=== PATIENT | female | born 1960 | race Caucasian/White ===

== ENCOUNTER 2018-10-03 05:27 | Day surgery (SDC) | payer OTHER ==
[2018-10-02 11:14] VITALS: Ht 160 cm; Wt 63.6 kg
--- NOTE | 2018-10-02 16:15 | RADRPT ---
Vent Rate: 75 bpm RR Interval: 800 msec MN Interval: 134 msec QRS Duration: 84 msec QT Interval: 350 msec QTC Interval: 391 msec P-R-T [place]: 69 - 53 - 44 degrees Sinus rhythm...normal P axis, V-rate 50- 99 Electronically Signed By: Shukri Cobb
--- NOTE | 2018-10-02 21:23 | PREAC ---
Date/Time of Note Date/Time of Note DATE: 10/02/18 TIME: : Anesthesia Eval and Record Evaluation Time Pre-Procedure Interview DATE: 10/02/18 TIME: 21:22 Age 58 Sex female NPO: 8 hrs Preoperative diagnosis LEFT distal radius fracture Planned procedure ORIF left distal radius Past Medical History Past Medical History: None Surgery & Anesthesia Issues No known issue Meds Anticoagulation: No Beta Jasson within 24 hr: No Reason Beta Jasson not given: Pt. not on B-Jasson Current Medications Cefazolin Sodium/ Dextrose 50 ml @ 100 mls/hr PRE-OP ONCE IVPB ; Start 10/03/18 at 07:00; Stop 10/03/18 at 07:29 Meds reviewed: Yes Allergies Coded Allergies: No Known Allergy (Unverified , 10/02/18) Allergies Reviewed: Yes Labs/Studies Labs Reviewed: Reviewed by anesthesiologist Result Diagram: 10/02/18 1318 10/02/18 1318 Laboratory Tests 10/02/18 13:18 test: N/A Studies: ECG, CXR Pre-procedure Exam Airway: Adequate mouth opening, Adequate thyromental dist Mallampati: Mallampati II Teeth: Normal Lung: Normal Heart: Normal ASA Physical Status ASA physical status: 1 Emergency: None Planned Anesthetic General/MAC: LMA Nerve block: Brachial plexus (left) Planned Pain Management Parenteral pain med, Local by surgeon Pre-operative Attestations Prior to commencing anesthesia and surgery, the patient was re-evaluated, there was verification of: *The patient's identity *The results of appropriate recent lab work and preoperative vital signs *The above evaluation not changing prior to induction *Anesthetic plan, risk benefits, alternative and complications discussed with patient/family; questions answered; patient/family understands, accepts and wishes to proceed. CRALY CARRION October 02, 2018 21:23
[2018-10-03] VITALS (19 sets, daily range): BP systolic 124–153; BP diastolic 64–82; PULSE 82–112; RESP 14–31
[~2018-10-03] VITALS: Ht 160 cm; Wt 63.6 kg
[2018-10-03] MEDS ORDERED: LIDOCAINE 2% (SDV) 5 ML INJ ONE (06:41)
[2018-10-03] MEDS ORDERED: MIDAZOLAM 1 MG/ML 2 ML INJ ONE (06:41)
[2018-10-03] MEDS ORDERED: CEFAZOLIN 1 GM INJ ONE (06:41)
[2018-10-03] MEDS ORDERED: FENTAnyl 50 MCG/ML VIAL ONE ×2 (06:41→06:42)
[2018-10-03] MEDS ORDERED: PROPOFOL 20 ML ONE (06:41)
[2018-10-03] MEDS ORDERED: ROPIVACAINE 0.5 % 30 ML VIAL ONE (06:42)
[2018-10-03] MEDS ORDERED: IBUP-1542 PO (06:55)
[2018-10-03] MEDS ORDERED: LACTATED RINGER'S 1,000 ML IV SCH (07:00)
[2018-10-03] MEDS ORDERED: CEFAZOLIN 2 GM/50 ML (PMX) 50 ML (FOR WT < 120 KG) IVPB ONE (07:00)
[2018-10-03] MEDS ORDERED: FAMOTIDINE 20 MG INJ ONE (07:55)
[2018-10-03] MEDS ORDERED: ONDANSETRON 4 MG INJ ONE (07:55)
[2018-10-03] MEDS ORDERED: DEXAMETHASONE 4 MG/ML 5 ML INJ ONE (07:55)
[2018-10-03] MEDS ORDERED: METOCLOPRAMIDE 10 MG INJ ONE ×2 (07:55→12:07)
[2018-10-03] MEDS ORDERED: POLYMYXIN/BACITRACIN 1L IRRIG IRR ONE (08:22)
[2018-10-03] MEDS ORDERED: HYDROmorphONE 1 MG/5 ML IV SYRINGE IV PRN ×2 (08:30)
[2018-10-03] MEDS ORDERED: OXYCODONE/ACETAMINOPHEN (5/325) TAB PO PRN ×2 (08:30)
[2018-10-03] MEDS ORDERED: LABETALOL HCL 20MG INJ IV PRN (08:30)
[2018-10-03] MEDS ORDERED: MEPERIDINE 25 MG INJ IV PRN (08:30)
[2018-10-03] MEDS ORDERED: ONDANSETRON 4 MG INJ IV PRN (08:30)
[2018-10-03] MEDS ORDERED: hydrALAzine 20 MG INJ IV PRN (08:30)
[2018-10-03] MEDS: HYDROmorphONE 1 MG/5 ML IV SYRINGE IV PRN ×2 (11:28→11:36)
--- NOTE | 2018-10-03 11:47 | OPR ---
Date/Time of Note Date/Time of Note DATE: 10/03/18 TIME: 11:19 Operative Report Procedure Date: October 03, 2018 Preoperative Diagnosis Left distal radius and ulna fracture, intra-articular, 3-part Postoperative Diagnosis Left distal radius and ulna fracture, intra-articular, 3-part Operation/Procedure Performed Open reduction internal fixation left distal radius Surgeon see signature line Institutional Research Coordinator None Anesthesia Type: general Tourniquet Time: 120 minutes Estimated Blood Loss: minimal Transfusion none Specimen None Grafts/Implants Trimed volar bearing plate, dorsal ulnar pin plate Tubes/Drains None Complications none Pt Condition Post Procedure: stable Disposition: PACU, home Indications Rocio is a 58 year old female right hand dominant female, [employer], who had a fall onto her left upper extremity on September 24, 2018, at work. She was found to have a left distal radius and ulna fracture with intra-articular displacement. She was indicated for surgery to restore alignment and function. She understands risks of surgery which include but are not limited to infection, pain, bleeding, neurovascular injury, stiffness, nonunion, malunion, nonunion, posttraumatic arthritis, decreased motion, hardware complications, decreased strength, more surgery, tendon injury, and other anesthesia-related risks. She elects to proceed. Procedure Description Patient was identified in preoperative holding area. Upper extremity was marked. Patient underwent an axillary block by anesthesia. She was brought to the operating room. She is placed supine and general endotracheal anesthesia was induced. 2 g of IV Ancef was administered. A nonsterile tourniquet was applied to the left arm. The arm was then prepped and draped in usual sterile fashion. Timeout was performed indicating correct patient site and procedure. The arm was exsanguinated Esmarch and tourniquet was elevated to 250 mm mercury. A trans-FCR approach was carried out. The skin was incised sharply with scal pel. Distally the incision was angled in oblique fashion across the wrist crease. Blunt dissection was performed through the fascia. FCR tendon was retracted ulnarly. The floor of the FCR sheath was incised longitudinally. The flexor tendons were retracted ulnarly and the radial artery was retracted radially. The pronator quadratus was elevated in a L-shaped fashion. The fra cture site was identified using a [employer] elevator. There was intra-articular extension noted. The bone was noted to be osteopenic. The wrist was reduced with axial traction and volar flexion. A trans-styloid K-wire was placed across the fracture to stabilize it initially. On fluoroscopy it looked like the K-wire was displacing the fracture more. There this was removed. A volar bearing plate was templated on the distal radius and temporarily stabilized with K-wires, proximal to the watershed line. The plate was centered on the distal radius shaft and its position was confirmed on fluoroscopy. Once it was noted to be in good position, a non-locking cortical screw was placed in the oblong hole of the plate. Next, the distal row was drilled. A cortical non-locking screw was placed in the central ulnar hole. Locking screws were then placed in the remainder of the holes. Her bone was small so the screw lengths that were placed were majority 16mm. Radial compression on the styloid was placed while the radial styloid screws were placed to reduce the intra-articular displacement. The first cortical screw was then removed and replaced with a locking screw. The proximal screws in the shaft of the plate were also filled with two more locking screws. The wrist was then taken through range of motion. There was a moderate sized lunate facet fragment. It looked like this fragment was still not appropriately stabilized. I exchanged the two most ulnar screws from a 16mm to 18mm. However, when rotated the wrist, it still felt unstable and there was crepitus. When I looked under fluoroscopy, there was gapping of the dorsal cortex when I was stressing the distal radius, as the distal row screws were not adequately capturing the lunate facet fragment. Therefore, I made the decision to proceed with dorsal fixation as well. A longitudinal incision was established on the dorsal wrist. Skin was incised sharply. The retinaculum over the fourth extensor compartment was partly released and the tendons were retracted radially. The fracture site was visualized. There fracture extended into the dorsal metaphysis. Subperiosteal dissection was performed. The wrist was flexed over on towels. A K-wire was placed at the distal ulnar corner of the distal radius. Its position was noted to be excellent on fluoroscopy. It was passed in an oblique fashion bicortically. A 5-hole dorsal ulnar pin plate was then chosen in order to bypass the metaphyseal fracture site. It was contoured in order to sit flat on the bone. Once it was appropriately contoured, it was centered on the distal radius on the PA view and noted to be laying flat on the lateral view. Cortical screws were then placed in the plate. Once of the screws was bicortical, and the other two screws were hitting the volar plate. This could not be avoided despite re-angling the drill bit. The screws were measured to be right up against the plate and overall there was good bite with the screws so this was accepted. Next, the K-wire was then backed out, cut, and bent. The hook of the plate was then malleted into the proximal hole. The bent wire was hitting against one of the volar screws, however. Therefore, the wire could not be seated flush. Therefore, the wire was removed and the hook was cut shorter. It was malleted into place, and this time, it seated, but now it appeared to be too short. Due to the risk of the wire backing out, this was removed. A new K-wire was cut the same length as the first wire and bent into a hook. It was then passed along the same hole. The hook was cut a bit longer this time. It seated well and appeared to have good bite. I placed a second K-wire proximal to it for additional fixation. This was delivered to the volar aspect of the distal radius. The K- wire was then pulled back, cut, and bent, and then malleted it back into place with good fixation. Fluoroscopy was taken demonstrating excellent position of the wires and plates. The wrist was then through range of motion and the wires were not backing out and the fracture was now stable. DRUJ was also shucked in supination, pronation, and neutral and noted to be stable. Of note, the tourniquet was released at 120 minutes. Final fluoroscopy images were taken. The screws were all of appropriate length. The wound was copiously irrigated with bacitracin impregnated normal saline. The fourth extensor retinaculum was partly closed with 3-0 Vicryl. Subcutaneous tissue was closed with 3-0 Vicryl and skin with horizontal mattress 4-0 nylon. Volarly, the pronator quadratus was repaired back with 3-0 Vicryl. Subcutaneous tissue was closed with 3-0 Vicryl and skin with 4-0 nylon suture. There was some tension on the closure on the volar incision. She was then placed into a well-padded volar splint. There was brisk capillary refill and all sponge and instrument counts were correct at the end of the case. She was extubated and taken to PACU in stable condition. Plan: She will follow-up next week. We will start range of motion at 2 weeks. JENNYFER LEVI MD October 03, 2018 11:46
[2018-10-03] MEDS ORDERED: morphine 4 MG/ML VIAL IV STA (11:59)
[2018-10-03] MEDS ORDERED: morphine 2 MG INJ ONE (12:07)
--- NOTE | 2018-10-03 12:07 | PAC ---
Date/Time of Note Date/Time of Note DATE: 10/03/18 TIME: 12:07 Post-Anesthesia Notes Post-Anesthesia Note Last documented vital signs Vital Signs Date Temp Pulse Resp B/P (MAP) Pulse Ox O2 O2 Flow FiO2 Time Delivery Rate 10/03/18 90 20 129/68 92 Room Air 11:33 (88) 10/03/18 98.8 6.0 11:07 Activity: WNL Respiratory function: WNL Cardiovascular function: WNL Mental status: Baseline Pain reasonably controlled: Yes Hydration appropriate: Yes Nausea/Vomiting absent: Yes CARLY CARRION October 03, 2018 12:07
[2018-10-03] MEDS ORDERED: morphine 2 MG INJ IV STA (12:11)
[2018-10-03] MEDS ORDERED: METOCLOPRAMIDE 10 MG INJ IV ONE (12:30)
[2018-10-03] MEDS ORDERED: ONDANSETRON 4 MG INJ IV STA (13:07)
[2018-10-03] MEDS ORDERED: FAMOTIDINE 20 MG INJ IV ONE (13:30)
[2018-10-03] MEDS ORDERED: OXYCODONE/ACETAMINOPHEN (5/325) TAB PO ONE (13:30)
== END 2018-10-03 14:40 | disposition home or self-care (01) ==
LOC: SDS 05:27
PROVIDERS: ATTEND Orthopaedic Surgery
DX: S52.572A Other intraarticular fracture of lower end of left radius, initial encounter for closed fracture (principal); S52.602A Unspecified fracture of lower end of left ulna, initial encounter for closed fracture; R94.31 Abnormal electrocardiogram [ECG] [EKG]
CPT/HCPCS: 25609; 71045; 73110; 80053; 85025; 85610; 85730; 93005; J0690; J1100; J1170; J2250; J2270; J2405; J2765; J2795; J3010; C1713